=== PATIENT | male | born 1970 | race Hispanic/Latino ===

== ENCOUNTER 2019-10-12 17:19 | Emergency (ER) | payer BC, SELFPAY ==
--- NOTE | 2019-10-12 17:30 | DI.RAD.S_ITS ---
PROCEDURE: XR SHOULDER RT MIN 2V INDICATIONS: pain decreased rom TECHNIQUE: 3 views of the shoulder were acquired. COMPARISON: None. FINDINGS: Bones: Mild to moderate right acromioclavicular joint osteoarthritic changes are seen. No fractures or dislocations. No suspicious bony lesions. Visualized ribs appear intact. Soft tissues: No suspicious soft tissue calcifications. IMPRESSION: Right acromioclavicular joint osteoarthritis. No shoulder fracture or dislocation. Dictated by: Aramis Monae M.D. on 10/12/2019 at 17:54 Approved by: Aramis Monae M.D. on 10/12/2019 at 17:54
--- NOTE | 2019-10-12 17:34 | ED.UPPEXIN ---
HPI - Extremity Injury (Upper) <RENATA CatesBC - Last Filed: 10/12/19 18:25> General Chief Complaint: Extremity Problem,Nontraumatic Stated Complaint: rt shoulder pain Time Seen by Provider: 10/12/19 17:23 Source: patient Mode of arrival: Ambulatory Limitations: no limitations History of Present Illness HPI narrative: The patient is a 49-year-old male who denies pertinent medical history presents with his for chief complaint of right shoulder pain. He states that he woke up with it this morning, and has been worsening with decreased range of motion throughout the day. He denies any falls or trauma. He states he took Tylenol with codeine as well as Tylenol at home, with no improvement. He is concerned about his rotator cuff. He states that his range of motion is significantly decreased. He states he has never had any issues like this before. Related Data Home Medications Medication Instructions Recorded Confirmed HYDROCODONE/ACETAMINOPHEN (Vicodin 1 tab PO PRN #0 07/11/11 5-500 Tablet) KETOROLAC TROMETHAMINE (#TORADOL) 10 mg PO PRN #0 07/11/11 Previous Rx's Medication Instructions Recorded cyclobenzaprine 10 mg PO TID PRN #20 tab 10/12/19 ketorolac 10 mg PO TID PRN #15 tab 10/12/19 Allergies Allergy/AdvReac Type Severity Reaction Status Date / Time acetaminophen [From Vicodin] AdvReac Nausea Verified 10/12/19 18:04 hydrocodone [From Vicodin] AdvReac Nausea Verified 10/12/19 18:04 Review of Systems <HERB Cates - Last Filed: 10/12/19 18:25> Review of Systems Narrative: GENERAL: Denies chills, fatigue, malaise, fever, sweats. HEENT: Denies sinus pain, ear pain, sore throat, difficulty swallowing, dizziness. RESPIRATORY: Denies dyspnea, cough, wheezing, hemoptysis, sputum. CARDIOVASCULAR: Denies chest pain, palpitations, orthopnea, edema, GASTROINTESTINAL: Denies nausea, vomiting, abdominal pain, diarrhea, constipation, melena. : Denies dysuria, frequency, incontinence, hematuria, urinary retention. MUSCULOSKELETAL: See HPI SKIN: Denies rash, skin lesions, or other NEUROLOGIC: Denies weakness, headache, numbness, change in speech, confusion, seizures, incoordination. PSYCHIATRIC: No concerning psychosocial issues. 12 point review of systems is negative except for those stated above Patient History <HERB Cates - Last Filed: 10/12/19 18:25> Social History Smoking Status: Current every day smoker Exam <HERB Cates - Last Filed: 10/12/19 18:25> Narrative Exam Narrative: GENERAL: This is a well-nourished, well-developed patient, in no acute distress HEAD: Atraumatic. Normocephalic. No temporal or scalp tenderness. EYES: Pupils equal round and reactive. Extraocular motions intact. No scleral icterus. No injection or drainage. ENT: Nose without bleeding, purulent drainage or septal hematoma. Throat without erythema, tonsillar hypertrophy or exudate. Uvula midline. Airway patent. NECK: Trachea midline. No JVD or lymphadenopathy. Supple, nontender, no meningeal signs. CARDIOVASCULAR: Regular rate and rhythm RESPIRATORY: No cough. No increased respiratory effort. No accessory muscle use. EXTREMITIES: General pain to palpation right shoulder. Cap refill less than 2 seconds all fingers right hand. Positive right pulse. Decreased range of motion all levine. Able to flex and extend to 90?. Negative empty can test. BACK: Nontender without deformity or crepitance. No flank tenderness. NEURO: AOx3. SKIN: No rash or erythema on visible skin. No rash erythema laceration abrasion noted right shoulder. Initial Vital Signs Initial Vital Signs: Vital Signs Pulse Rate 97 H 10/12/19 17:43 Respiratory Rate 20 10/12/19 17:43 Blood Pressure 125/81 10/12/19 17:43 Pulse Oximetry 100 10/12/19 17:43 <Porfirio Blackmon DO - Last Filed: 10/14/19 11:38> Initial Vital Signs Initial Vital Signs: Vital Signs Pulse Rate 97 H 10/12/19 17:43 Respiratory Rate 20 10/12/19 17:43 Blood Pressure 125/81 10/12/19 17:43 Pulse Oximetry 100 10/12/19 17:43 Course <HERB Cates - Last Filed: 10/12/19 18:25> Orders Ordered: Discontinued Medications Cyclobenzaprine HCl (Flexeril) 10 mg PO NOW ONE Stop: 10/12/19 17:31 Last Admin: 10/12/19 17:42 Dose: 10 mg Documented by: RAHUL Ketorolac Tromethamine (Toradol) 60 mg IM NOW ONE Stop: 10/12/19 17:31 Last Admin: 10/12/19 17:42 Dose: 60 mg Documented by: RAHUL Vital Signs Vital signs: Vital Signs - 8 hr 10/12/19 17:43 Pulse Rate 97 H Respiratory Rate 20 Blood Pressure [Left Arm] 125/81 Pulse Oximetry 100 <Porfirio Blackmon DO - Last Filed: 10/14/19 11:38> Orders Ordered: Discontinued Medications Cyclobenzaprine HCl (Flexeril) 10 mg PO NOW ONE Stop: 10/12/19 17:31 Last Admin: 10/12/19 17:42 Dose: 10 mg Documented by: RAHUL Ketorolac Tromethamine (Toradol) 60 mg IM NOW ONE Stop: 10/12/19 17:31 Last Admin: 10/12/19 17:42 Dose: 60 mg Documented by: RAHUL Vital Signs Vital signs: Vital Signs - 8 hr 10/12/19 17:43 Pulse Rate 97 H Respiratory Rate 20 Blood Pressure [Left Arm] 125/81 Pulse Oximetry 100 MDM - Extremity Injury (Upper) <HERB Cates - Last Filed: 10/12/19 18:25> Imaging Data Extremity x-ray #1: Radiologist's Impression: [place] [address] XRay Report Signed Patient: Mickey LuongMR#: [id number] : 1970Acct:[id number] Age/Sex: 49 / MDate of Service: 10/12/19 Loc: ED Accession Number: [id number] Procedure: XR shoulder RT min 2V Ordering Provider: Calli Deal PROCEDURE: XR SHOULDER RT MIN 2V INDICATIONS: pain decreased rom TECHNIQUE: 3 views of the shoulder were acquired. COMPARISON: None. FINDINGS: Bones: Mild to moderate right acromioclavicular joint osteoarthritic changes are seen. No fractures or dislocations. No suspicious bony lesions. Visualized ribs appear intact. Soft tissues: No suspicious soft tissue calcifications. IMPRESSION: Right acromioclavicular joint osteoarthritis. No shoulder fracture or dislocation. Dictated by: Aramis Monae M.D. on 10/12/2019 at 17:54 Approved by: Aramis Monae M.D. on 10/12/2019 at 17:54 [facility] Narrative Medical decision making narrative: The patient is a 49-year-old male who presents with a chief complaint of right shoulder pain. No known trauma. His x-ray has no acute findings he feels much improved after the above-stated therapies. Neurovascularly intact throughout his stay in the emergency department. I discussed at length the importance of following up with primary care provider, coming back to the emergency department for any acute concerns. Discussed not combining Toradol with any other NSAIDs. Discussed not combining cyclobenzaprine with any sedating agents. Patient has no questions or concerns upon discharge and states understanding of return precautions as well as follow-up care. Discharge Plan Departure Patient Disposition: Home Clinical Impression: Acute shoulder pain Qualifiers: Laterality: right Qualified Code(s): M25.511 - Pain in right shoulder Discharge Date/Time: 10/12/19 18:31 Instructions: How To Perform RICE (Rest, Ice, Compress, Elevate), DI for Shoulder Pain Activity Restrictions/Additional Instructions: As I discussed, your x-ray shows no acute fracture. This does not rule out a soft tissue injury such as a ligament or tendon injury. It is important that you follow up with primary care provider, especially if worsening or no improvement. There can be fractures that did not show up on initial x-ray. I have given you a prescription of Toradol. This is an NSAID. Do not combine it with other NSAIDs such as Aleve or ibuprofen. I suggest taking it with some food, as it can irritate your stomach. I also given you prescription of cyclobenzaprine. This can be sedating. Do not take it with anything else sedating. Please follow-up with primary care provider in the next few days Please come back to the emergency department for any acute concerns. Prescriptions: New ketorolac 10 mg tablet 10 mg PO TID PRN (Reason: pain) Qty: 15 RF: 0 cyclobenzaprine 10 mg tablet 10 mg PO TID PRN (Reason: muscle spasm) Qty: 20 RF: 0 No Action HYDROCODONE/ACETAMINOPHEN (Vicodin 5-500 Tablet) 1 tab PO PRN Qty: 0 RF: 0 KETOROLAC TROMETHAMINE (#TORADOL) 10 mg PO PRN Qty: 0 RF: 0 Referrals: [facility] [Non-Staff] - <Porfirio Blackmon DO - Last Filed: 10/14/19 11:38> Sign Out Provider Sign Out Attestation: I was immediately available in the department for consultation. This documentation has been reviewed and I agree with assessment and plan. Supervised by Porfirio Blackmon DO
[2019-10-12] MEDS: KETOROLAC 60 MG/2 ML VIAL IM (17:42)
[2019-10-12] MEDS: CYCLOBENZAPRINE 10 MG TABLET PO (17:42)
[2019-10-12 17:43] VITALS: BP 125/81; PULSE 97; RESP 20; O2SAT 100
[2019-10-12 18:30] VITALS: BP 119/83; PULSE 80; RESP 16; O2SAT 98
== END 2019-10-12 18:31 | disposition home or self-care (01) ==
PROVIDERS: Emergency Provider Nurse Practitioner Family
DX: M25.511 Pain in right shoulder (principal)
CPT/HCPCS: 73030; 96372; 99283; 99284; J1885

== ENCOUNTER 2021-09-15 13:01 | Emergency (ER) | payer BC, SELFPAY ==
[2021-09-15 13:05] VITALS: BP 130/91; PULSE 99; RESP 18; O2SAT 100; BMI 26.6
--- NOTE | 2021-09-15 13:08 | DI.RAD.S_ITS ---
PROCEDURE: XR KNEE RT 3V INDICATIONS: pain, unknown, no injury TECHNIQUE: 3 views of the knee were acquired. COMPARISON: None. FINDINGS: Bones: No fractures or dislocations. No suspicious bony lesions. Soft tissues: There is a aipt-cd-gvgqcheb joint effusion. No suspicious soft tissue calcifications. IMPRESSION: Pxhe-xl-msyruhhn joint effusion, without a focal bony abnormality seen by plain film. If it would be helpful for clinical management decision making, please consider a dedicated, scheduled knee MRI for further evaluation (assuming that there is no contraindication). Dictated by: Hema Liz M.D. on 09/15/2021 at 12:24 Approved by: Hema Liz M.D. on 09/15/2021 at 12:25
--- NOTE | 2021-09-15 13:21 | ED.EXTPRO ---
HPI - Extremity Problem <BORA Mccoy - Last Filed: 09/15/21 19:32> General Chief complaint: Extremity Problem,Nontraumatic Stated complaint: right knee pain Time Seen by Provider: 09/15/21 13:15 Source: patient Mode of arrival: Ambulatory History of Present Illness HPI Narrative: 51-year-old male presents to the emergency department with acute onset of right knee pain without trauma which started yesterday when he was getting out of his truck. 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 He denies any known trauma, denies any history of right knee pain, states that his legs are sore and stiff when he gets out of his truck and he has to stretch them. He endorses right lateral 5 pain associated with his right knee pain and the worst of his pain on the right lateral aspect of his right knee. He denies any internal knee pain, denies any difficulty ambulating on his knee, denies any sensation changes distal to his pain, denies any history of diabetes, denies any hip or ankle pain. Related Data Home Medications Medication Instructions Recorded Confirmed HYDROCODONE/ACETAMINOPHEN (Vicodin 1 tab PO PRN #0 07/11/11 5-500 Tablet) KETOROLAC TROMETHAMINE (#TORADOL) 10 mg PO PRN #0 07/11/11 Previous Rx's Medication Instructions Recorded cyclobenzaprine 10 mg tablet 10 mg PO TID PRN #20 tab 10/12/19 ketorolac 10 mg tablet 10 mg PO TID PRN #15 tab 10/12/19 Allergies Allergy/AdvReac Type Severity Reaction Status Date / Time No Known Drug Allergies Allergy Verified 09/15/21 13:04 Review of Systems <BORA Mccoy - Last Filed: 09/15/21 19:32> Review of Systems Narrative: General: denies fever, chills, malaise, sweats, fatigue Head/Neck: denies headache, neck pain, dizziness Eyes: denies visual changes, eye pain Cardio: denies chest pain, palpitations, edema Respiratory: denies dyspnea, cough, orthopnea GI: denies abdominal pain, nausea, vomiting, or diarrhea : denies dysuria, hematuria, urinary retention, frequency or incontinence MSK: Endorses right knee pain on the lateral aspect without muscle weakness, associated with right lateral distal thigh pain Skin: denies rash, itching, skin lesions or other Neuro: denies numbness, tingling Patient History <BORA Mccoy - Last Filed: 09/15/21 19:32> Social History Smoking Status: Current every day smoker Smoking Status: Current every day smoker Substance Use Type: does not use Exam <BORA Mccoy - Last Filed: 09/15/21 19:32> Narrative Exam Narrative: Independently reviewed vitals signs and nursing notes. General: Cooperative, comfortable, in no acute distress, well developed and well groomed Head/Neck: Normal visual inspection and supple, atraumatic, no JVD or lymphadenopathy. Normal facial exam Eyes: Pupils equal round and reactive, EOMI, conjunctiva normal, no scleral icterus or injections Nose: External nose normal, nares patent, no rhinorrhea Cardio: Regular rate and rhythm, no peripheral edema, warm extremities Respiratory: Normal respiratory effort, able to speak in complete sentences without audible wheezing, stridor, or rales. No retractions. MSK: Moves all extremities, neurovascularly intact, right iliotibial band tenderness and tightness to palpation, worse at the lateral right knee attachment point with associated edema, Miriam's test negative, Varus/valgus test are negative for increased laxity, no skin changes or ecchymosis, no weakness, Skin: Normal capillary refill, no rash Neuro: Normal speech and cognition, normal gait, A&O x3, tone normal, moves all extremities Psych: Mental status is grossly normal, speech is clear, congruent mood, normal affect Initial Vital Signs Initial Vital Signs: Vital Signs Pulse Rate 99 H 09/15/21 13:05 Respiratory Rate 18 09/15/21 13:05 Blood Pressure 130/91 H 09/15/21 13:05 Pulse Oximetry 100 09/15/21 13:05 <Calli Rollins DO - Last Filed: 09/21/21 08:12> Initial Vital Signs Initial Vital Signs: Vital Signs Pulse Rate 99 H 09/15/21 13:05 Respiratory Rate 18 09/15/21 13:05 Blood Pressure 130/91 H 09/15/21 13:05 Pulse Oximetry 100 09/15/21 13:05 Course <BORA Mccoy - Last Filed: 09/15/21 19:32> Orders Ordered: Discontinued Medications Acetaminophen (Acetaminophen 325 Mg Tablet) 975 mg PO NOW ONE Stop: 09/15/21 13:42 Last Admin: 09/15/21 13:49 Dose: 975 mg Documented by: ADINA Ketorolac Tromethamine (Ketorolac 30 Mg/Ml Vial) 15 mg IM NOW ONE Stop: 09/15/21 13:42 Last Admin: 09/15/21 13:48 Dose: 15 mg Documented by: ADINA Vital Signs Vital signs: Vital Signs - 8 hr 09/15/21 13:05 09/15/21 13:53 Pulse Rate 99 H 70 Respiratory Rate 18 18 Blood Pressure 130/91 H 130/67 Pulse Oximetry 100 98 <Calli Rollins DO - Last Filed: 09/21/21 08:12> Orders Ordered: Discontinued Medications Acetaminophen (Acetaminophen 325 Mg Tablet) 975 mg PO NOW ONE Stop: 09/15/21 13:42 Last Admin: 09/15/21 13:49 Dose: 975 mg Documented by: ADINA Ketorolac Tromethamine (Ketorolac 30 Mg/Ml Vial) 15 mg IM NOW ONE Stop: 09/15/21 13:42 Last Admin: 09/15/21 13:48 Dose: 15 mg Documented by: ADINA Vital Signs Vital signs: Vital Signs - 8 hr 09/15/21 13:05 09/15/21 13:53 Pulse Rate 99 H 70 Respiratory Rate 18 18 Blood Pressure 130/91 H 130/67 Pulse Oximetry 100 98 MDM - Extremity (Nontraumatic) <BORA Mccoy - Last Filed: 09/15/21 19:32> Imaging Data Extremity x-ray #1: Radiologist's Impression: PROCEDURE:? XR KNEE RT 3V ? INDICATIONS:? pain, unknown, no injury ? TECHNIQUE:? 3 views of the knee were acquired.? ? COMPARISON:? None. ? FINDINGS:? ? Bones:? No fractures or dislocations.? No suspicious bony lesions.? ? Soft tissues:? There is a kuhs-zy-qyvfpxxi joint effusion.? No suspicious soft tissue calcifications.? ? ? IMPRESSION:? Mxnn-cu-drrokdcg joint effusion, without a focal bony abnormality seen by plain film. ? If it would be helpful for clinical management decision making, please consider a dedicated, scheduled knee MRI for further evaluation (assuming that there is no contraindication).? ? ? Dictated by: Hema Liz M.D. on 09/15/2021 at 12:24 ? ? Approved by: Hema Liz M.D. on 09/15/2021 at 12:25 ? MDM Narrative Medical decision making narrative: 51-year-old male presents to the emergency department with right lateral knee pain which started yesterday when he got out of his truck. There is no associated trauma. Patient is a entry level truck driver, sits for long periods of time, is active outside of his job he says. Patient has not had any right knee pain in the past. On exam patient has right lateral knee tenderness over the LCL/iliotibial band with associated iliotibial band tension. Patient has tenderness along his iliotibial band, it is lot more tense than the left side. He does have a moderate right knee effusion on x-ray but no acute fracture, weakness, no internal knee pain, all of his pain is on the lateral aspect of his right knee which radiates up the lateral aspect of his thigh along his ID band. Patient was fitted in a knee immobilizer, he was given Toradol and Tylenol for pain. He was given a referral to Orthopedics and understands to follow-up with his primary care provider for referral to physical therapy and for outpatient advanced imaging. Patient was able to ambulate without difficulty in his knee immobilizer. Differential diagnosis includes ligamental injury, osteoarthritis, meniscal injury, ACL injury. Patient is appropriate and amenable to discharge home. Vital signs are stable on repeat examination is unremarkable. Patient has been informed of results. Patient has been given strict return to ER precautions for any new or worsening symptoms. Patient understands to follow up closely with outpatient providers as instructed. Patient understands plan and agrees to discharge home. All questions and concerns answered at this time. Discharge Plan Departure Patient Disposition: Home Clinical Impression: Iliotibial band syndrome affecting right lower leg, Effusion of knee joint right Instructions: Iliotibial Band Syndrome, DI for Knee Effusion Activity Restrictions/Additional Instructions: *You have been diagnosed with iliotibial band syndrome, and a right knee effusion. Please with this knee immobilizer as much as possible to help your right knee effusion improved. Morning and night stretch your IT bands and hold the stretches for at least 60 seconds. You can find these exercises/stretches on You Tube or online. Please follow-up with your primary care provider for a physical therapy referral as well as outpatient advanced imaging if necessary. I have included a referral to Orthopedics, please call and schedule an appointment for follow-up. You may use lidocaine patches or Voltaren gel for your right knee, take Tylenol and ibuprofen unless using Voltaren gel, then just Tylenol in addition to that. May ice it, keep it in the knee immobilizer, try to reduce stress. Hope it feels better soon. *What to do: *Please continue to take your regular medications as directed. [ ] New medication prescriptions sent to your pharmacy: [ ] [ ] New medication written as a paper prescription [ x] No new medications given *Please follow up with your primary care provider in 2-3 days, call for an appointment. Let them know you were seen in the Emergency Department and that we ask that you be seen in follow up. We will electronically transmit a record of today's note if your PCP is in our system *If you do not have a primary care provider please contact the [facility] Resource line at [phone]. They will ask some questions about your medical history and help get you set up with a doctor in the community. *Return to Emergency Department if you should have any new, worsening or concerning symptoms, such as [fever greater than 101F, chills, worsening pain, persistent vomiting or other bothersome symptoms] Prescriptions: No Action HYDROCODONE/ACETAMINOPHEN (Vicodin 5-500 Tablet) 1 tab PO PRN Qty: 0 0RF KETOROLAC TROMETHAMINE (#TORADOL) 10 mg PO PRN Qty: 0 0RF ketorolac 10 mg tablet 10 mg PO TID PRN (Reason: pain) Qty: 15 0RF cyclobenzaprine 10 mg tablet 10 mg PO TID PRN (Reason: muscle spasm) Qty: 20 0RF Referrals: [facility] [Provider Group] - 3-5 days Stand Alone Forms: Work Release Note <Calli Rollins DO - Last Filed: 09/21/21 08:12> Cosign ED Attending Cosignature Attestation: I was immediately available in the department for consultation. Documentation has been reviewed.
[2021-09-15] MEDS: KETOROLAC 30 MG/ML VIAL 15 MG IM (13:48)
[2021-09-15] MEDS: ACETAMINOPHEN 325 MG TABLET 975 MG PO (13:49)
[2021-09-15 13:53] VITALS: BP 130/67; PULSE 70; RESP 18; O2SAT 98
== END 2021-09-15 14:04 | disposition home or self-care (01) ==
PROVIDERS: Emergency Provider Nurse Practitioner Critical Care Medicine
DX: M76.31 Iliotibial band syndrome, right leg (principal); M25.461 Effusion, right knee
CPT/HCPCS: 73562; 96372; 99283; 99284; J1885

== ENCOUNTER 2021-12-15 06:57 | Emergency (ER) | payer OTHER, SELFPAY ==
[2021-12-15 07:00] VITALS: BP 146/85; PULSE 92; RESP 17; TEMP 36.5; O2SAT 99; BMI 25.8
--- NOTE | 2021-12-15 07:26 | DI.CT.S_ITS ---
PROCEDURE: CT ABDOMEN PELVIS W CON INDICATIONS: LLQ pain, hx colectomy for diverticulitis TECHNIQUE: After the administration of intravenous contrast, axial sections acquired from the lung bases to the pubic symphysis. Coronal and sagittal reformats were performed. For radiation dose reduction, the following was used: automated exposure control, adjustment of mA and/or kV according to patient size. COMPARISON: [facility], CT, ABDOMEN/PELVIS WITH CONTRAST, 07/11/2011, 17:18. FINDINGS: Lower thorax: The lung bases are clear. Heart size normal. No hiatal hernia. Liver: Normal in size and attenuation. No contour deformity present. Biliary system: No calcified cholelithiasis or pericholecystic inflammation. No intra or extrahepatic bile duct dilatation. Pancreas: Unremarkable without mass or inflammation evident. Spleen: Normal in size and density. Adrenals: Normal morphology and density. Reproductive system: Unremarkable as visualized. Urinary system: Normal renal size and attenuation. No renal calculi, hydronephrosis, or solid mass present. Urinary bladder unremarkable. Gastrointestinal system: Multiple diverticula arise from the sigmoid and descending colon. There is Christine colic inflammatory change noted in focally at the distal descending colon. No evidence of abscess, free air or free fluid. Appendix: No findings to suggest acute appendicitis. Peritoneal spaces: No mesenteric or retroperitoneal adenopathy. No free air. No free fluid. Vasculature: The IVC, aorta and iliac vasculature are unremarkable. Abdominal wall: Abdominal wall intact without evidence of ventral or inguinal hernias. Musculoskeletal: Normal bone mineralization. No acute fractures. IMPRESSION: 1. Acute uncomplicated diverticulitis in the distal descending colon. No evidence of obstruction, abscess or free air. Approved by: Bahman Ramirez M.D. on 12/15/2021 at 8:14
--- NOTE | 2021-12-15 07:27 | ED_ITS ---
HPI - Abdominal Pain General Chief Complaint: Abdominal Pain Stated Complaint: Thinks diverticulitis flare up Time Seen by Provider: 12/15/21 07:19 Source: patient Mode of arrival: Ambulatory History of Present Illness HPI narrative: Patient is a healthy 51-year-old male with history of diverticulitis with colectomy number of years ago presenting today with left lower quadrant pain. He says this feels like previous diverticulitis attacks. The 1st attack ever had was quite severe requiring colectomy that was about 10 years ago. Since the surgery only had 1 other attack tilted. He actually started a little bit yesterday and he wants to get checked out today. He denies fevers chills. No nausea or vomiting. No change in bowel or bladder habits. He is hoping to get ahead of it Related Data Home Medications Medication Instructions Recorded Confirmed HYDROCODONE/ACETAMINOPHEN (Vicodin 1 tab PO PRN #0 07/11/11 5-500 Tablet) KETOROLAC TROMETHAMINE (#TORADOL) 10 mg PO PRN #0 07/11/11 Previous Rx's Medication Instructions Recorded cyclobenzaprine 10 mg tablet 10 mg PO TID PRN #20 tab 10/12/19 ketorolac 10 mg tablet 10 mg PO TID PRN #15 tab 10/12/19 ciprofloxacin HCl 500 mg tablet 500 mg PO BID #20 tab 12/15/21 (Cipro) metronidazole 500 mg tablet 500 mg PO Q8H 10 Days #30 tab 12/15/21 Allergies Allergy/AdvReac Type Severity Reaction Status Date / Time No Known Drug Allergies Allergy Verified 09/15/21 13:04 Review of Systems Review of Systems Narrative: GENERAL: Denies chills, fatigue, malaise, fever, sweats, travel HEENT: Denies sinus pain, ear pain, sore throat, difficulty swallowing, neck pain RESPIRATORY: Denies dyspnea, cough, wheezing, hemoptysis, sputum. CARDIOVASCULAR: Denies chest pain, palpitations, orthopnea, edema GASTROINTESTINAL: See HPI : Denies dysuria, frequency, incontinence, hematuria, urinary retention, flank pain. MUSCULOSKELETAL: Denies weakness, joint pain, or bony pain SKIN: No rash, no erythema, no pruritus NEUROLOGIC: Denies weakness, dizziness, headache, numbness, change in speech, confusion PSYCHIATRIC: No concerning psychosocial issues. 12 point review of systems is negative except for those stated above and HPI Patient History Medical History Diverticulitis Social History Smoking Status: Current every day smoker Smoking Status: Current every day smoker Substance Use Type: does not use Exam Initial Vital Signs Initial Vital Signs: Vital Signs Temperature 97.7 F 12/15/21 07:00 Pulse Rate 92 H 12/15/21 07:00 Respiratory Rate 17 12/15/21 07:00 Blood Pressure 146/85 H 12/15/21 07:00 Pulse Oximetry 99 12/15/21 07:00 GENERAL: Well-appearing 51-year-old and in no acute distress. HEENT: Head atraumatic,EOMI, pupils reactive, face symmetric, moist mucous membranes CARDIOVASCULAR: Regular rate and rhythm without murmurs, rubs or gallops. RESPIRATORY: Breath sounds equal bilaterally, no wheezes rales or rhonchi. ABDOMEN: Soft, tender left lower quadrant pain no guarding no rebound : No CVA tenderness EXTREMITIES: Normal range of motion, no clubbing or edema. Neurovascularly intact NEUROLOGICAL: Alert and oriented x4.Normal gait and speech. SKIN: Warm, dry, no laceration, no petechiae, no rashes or lesions. Course Orders Ordered: ED Orders 12/15/21 07:26 CT abdomen pelvis w con Stat 12/15/21 07:49 Complete Blood Count AUTO DIFF Stat Comprehensive Metabolic Panel Stat Lipase Stat Urinalysis and Microscopic Stat Vital Signs Vital signs: Vital Signs - 8 hr 12/15/21 07:00 Temperature 97.7 F Pulse Rate 92 H Respiratory Rate 17 Blood Pressure 146/85 H Pulse Oximetry 99 MDM - Abdominal Pain Lab Data Result diagrams: 12/15/21 07:49 12/15/21 07:49 Labs: Lab Results 12/15/21 12/15/21 12/15/21 Range/Units 07:49 07:49 07:49 WBC 10.7 (4.5-11.0) X10^3/uL RBC 4.97 (4.5-5.9) X10^6/uL Hgb 15.2 (13.5-17.5) g/dL Hct 44.2 (41-53) % MCV 89.0 (80-100) fL MCH 30.5 (26-34) PG MCHC 34.3 (30-36) % RDW 13.4 (11.6-14.8) % Plt Count 291 (150-400) X10^3/uL Neut % (Auto) 75.7 H (50-75) % Lymph % (Auto) 15.5 L (25-40) % [place] % (Auto) 6.6 (3-14) % Eos % (Auto) 1.7 L (2-4) % Baso % (Auto) 0.5 (0-2) % Neut # (Auto) 8100 H (4840-2607) /uL Lymph # (Auto) 1700 (7943-1227) /uL [place] # (Auto) 700 (0-900) /uL Eos # (Auto) 200 (0-450) /uL Baso # (Auto) 100 (0-100) /uL Sodium 140 (137-145) mmol/L Potassium 4.3 (3.4-5.1) mmol/L Chloride 105 (98-107) mmol/L Carbon Dioxide 30 (22-32) mmol/L BUN 14 (9-20) mg/dL Creatinine 0.92 (0.66-1.25) mg/dL Estimated GFR > 60 (>60) mL/min BUN/Creatinine Ratio 15.2 (6-22) Glucose 98 (70-100) mg/dL Calcium 9.1 (8.4-10.2) mg/dL Total Bilirubin 0.7 (0.2-1.3) mg/dL AST 27 (17-59) IU/L ALT 20 (<50) IU/L Alkaline Phosphatase 66 (38-126) U/L Total Protein 7.1 (6.3-8.2) g/dL Albumin 4.2 (3.5-5.0) g/dL Globulin 2.9 (1.7-4.1) g/dL Albumin/Globulin Ratio 1.4 (1.0-2.8) Lipase 44 (23-300) U/L Urine Color Yellow Urine Appearance Clear Urine pH 6.5 (4.5-8.0) Ur Specific [place] 1.020 (1.000-1.035) Urine Protein Trace H (Negative) Urine Glucose (UA) Negative (Negative) g/dL Urine Ketones Negative (NEGATIVE) Urine Occult Blood 2+ H (Negative) Urine Nitrate Negative (Negative) Urine Bilirubin Negative (NEGATIVE) Urine Urobilinogen 0.2 (0.2) E.U./dL Ur Leukocyte Esterase Negative (NEGATIVE) Urine RBC 1-5/hpf (0-5/HPF) Urine WBC 0-1/hpf (0-5/HPF) Ur Squamous Epith Cells 0-1 /hpf (0-5/HPF) Urine Bacteria None seen (None) Urine Mucus 2+ H (Negative) Ur Culture Indicated? Cult not indicated Imaging Data CT scan - abdomen/pelvis: Radiologist's Impression: [facility] [id number] CT Scan Report Signed Patient: Mickey Luong MR#: [id number] : 1970 Acct:[id number] Age/Sex: 51 / M Date of Service: 12/15/21 Loc: Accession Number: [id number] ?? Procedure: CT abdomen pelvis w con Ordering Provider: Lizy Conte D.O. PROCEDURE:? CT ABDOMEN PELVIS W CON ? INDICATIONS:? LLQ pain, hx colectomy for diverticulitis ? TECHNIQUE:? After the administration of intravenous contrast, axial sections acquired from the lung bases to the pubic symphysis.? Coronal and sagittal reformats were performed.? For radiation dose reduction, the following was used:? automated exposure control, adjustment of mA and/or kV according to patient size.? ? COMPARISON:? [facility], CT, ABDOMEN/PELVIS WITH CONTRAST, 07/11/2011, 17:18. ? FINDINGS: ? Lower thorax: The lung bases are clear.? Heart size normal.? No hiatal hernia. ? Liver:? Normal in size and attenuation. No contour deformity present. ? Biliary system:? No calcified cholelithiasis or pericholecystic inflammation.? No intra or extrahepatic bile duct dilatation. ? Pancreas:? Unremarkable without mass or inflammation evident. ? Spleen:? Normal in size and density. ? Adrenals:? Normal morphology and density. ? Reproductive system:? Unremarkable as visualized. ? Urinary system:? Normal renal size and attenuation. No renal calculi, hydronephrosis, or solid mass present.? Urinary bladder unremarkable. ? Gastrointestinal system:? Multiple diverticula arise from the sigmoid and de scending colon.? There is Christine colic inflammatory change noted in focally at the distal descending colon.? No evidence of abscess, free air or free fluid. ? Appendix:? No findings to suggest acute appendicitis. ? Peritoneal spaces:? No mesenteric or retroperitoneal adenopathy.? No free air.? No free fluid.? ? Vasculature:? The IVC, aorta and iliac vasculature are unremarkable. ? Abdominal wall:? Abdominal wall intact without evidence of ventral or inguinal hernias. ? Musculoskeletal:? Normal bone mineralization.? No acute fractures.? ? IMPRESSION: ? 1. Acute uncomplicated diverticulitis in the distal descending colon.? No evidence of obstruction, abscess or free air. ? ? ? Approved by: Bahman Ramirez M.D. on 12/15/2021 at 8:14? MDM Narrative Medical decision making narrative: The patient overall appears well. He is offered something for pain but this time it does not need or want to. He just wants to know what it is. Based on his history will do CT. CT confirms uncomplicated Diverticulitis. Blood work is overall reassuring. A prescriptions for Flagyl and Cipro are sent to pharmacy today. Discharge Plan Departure Patient Disposition: Home Clinical Impression: Diverticulitis Instructions: DI for Diverticulitis Activity Restrictions/Additional Instructions: *You have been diagnosed with uncomplicated diverticulitis *What to do: At this time continue to monitor. It should improve over the next couple of days with antibiotics. *Continue to take medications as directed --> [facility]. Cipro 500 mg twice a day for 10 days Flagyl 500 mg 3 times a day for 10 days *Follow up with your primary care provider in 2-3 days or call [phone] *Return to ER if you should have increasing pain fever bloody stools or any new, worsening or concerning symptoms Prescriptions: New metronidazole 500 mg tablet 500 mg PO Q8H 10 Days Qty: 30 0RF ciprofloxacin HCl [Cipro] 500 mg tablet 500 mg PO BID Qty: 20 0RF No Action HYDROCODONE/ACETAMINOPHEN (Vicodin 5-500 Tablet) 1 tab PO PRN Qty: 0 0RF KETOROLAC TROMETHAMINE (#TORADOL) 10 mg PO PRN Qty: 0 0RF ketorolac 10 mg tablet 10 mg PO TID PRN (Reason: pain) Qty: 15 0RF cyclobenzaprine 10 mg tablet 10 mg PO TID PRN (Reason: muscle spasm) Qty: 20 0RF
[2021-12-15 08:02] LABS: Add Manual Diff / Slide Review NO; Appearance Urine UA CLEAR; Basophils Absolute Auto 100 /uL (0-100); Basophils Percent Auto 0.5 % (0-2); Bilirubin Urine UA NEGATIVE (NEGATIVE); Color Urine UA YELLOW; Eosinophils Absolute Auto 200 /uL (0-450); Eosinophils Percent Auto 1.7 % (2-4); Glucose Urine UA NEGATIVE (Negative); Hematocrit 44.2 % (41-53); Hemoglobin 15.2 g/dL (13.5-17.5); Ketones Urine UA NEGATIVE (NEGATIVE); Leukocyte Esterase Urine UA NEGATIVE (NEGATIVE); Lymphocytes Absolute Auto 1700 /uL (1100-4500); Lymphocytes Percent Auto 15.5 % (25-40); Mean Corpuscular HGB Conc 34.3 % (30-36); Mean Corpuscular Hemoglobin 30.5 PG (26-34); Monocytes Absolute Auto 700 /uL (0-900); Monocytes Percent Auto 6.6 % (3-14); Neutrophils Absolute Auto 8100 /uL (1500-7000); Neutrophils Percent Auto 75.7 % (50-75); Nitrite Urine UA NEGATIVE (Negative); Occult Blood Urine UA 2+ (Negative); Platelet Count 291 X10^3/uL (150-400); Protein Urine UA TRACE (Negative); Red Blood Cell Count 4.97 X10^6/uL (4.5-5.9); Red Cell Distribution Width 13.4 % (11.6-14.8); Urobilinogen Urine UA 0.2 E.U./dL (0.2); White Blood Cell Count 10.7 X10^3/uL (4.5-11.0); pH Urine UA 6.5 (4.5-8.0)
[2021-12-15 08:10] LABS: Bacteria Urine None Seen; Culture Indicated Urine Cult Not Indicated; Mucus Urine 2+ (Negative); RBC Urine 1-5/HPF (0-5/HPF); Squamous Epithelial Cell Urine 0-1 /HPF (0-5/HPF); WBC Urine 0-1/HPF (0-5/HPF)
[2021-12-15 08:12] LABS: Alanine Aminotransferase 20 IU/L (<50); Albumin 4.2 g/dL (3.5-5.0); Albumin Globulin Ratio 1.4 (1.0-2.8); Alkaline Phosphatase 66 U/L (38-126); Aspartate Aminotransferase 27 IU/L (17-59); BUN Creatinine Ratio 15.2 (6-22); Bilirubin Total 0.7 mg/dL (0.2-1.3); Blood Urea Nitrogen 14 mg/dL (9-20); Calcium 9.1 mg/dL (8.4-10.2); Carbon Dioxide 30 mmol/L (22-32); Chloride 105 mmol/L (98-107); Estimated Glomerular Filt Rate > 60 mL/min (>60); Globulin 2.9 g/dL (1.7-4.1); Glucose 98 mg/dL (70-100); HEMOLYSIS < 15 (0-50); Lipase 44 U/L (23-300); Potassium 4.3 mmol/L (3.4-5.1); Sodium 140 mmol/L (137-145); Total Protein 7.1 g/dL (6.3-8.2)
[2021-12-15 09:50] VITALS: BP 125/75; PULSE 80; RESP 16; O2SAT 99
== END 2021-12-15 09:52 | disposition home or self-care (01) ==
PROVIDERS: Emergency Provider Emergency Medicine
DX: K57.92 Diverticulitis of intestine, part unspecified, without perforation or abscess without bleeding (principal)
CPT/HCPCS: 36415; 74177; 80053; 81001; 83690; 85025; 99284; Q9967

== ENCOUNTER 2022-09-11 21:19 | Emergency (ER) | payer OTHER, SELFPAY ==
[2022-09-11 21:31] VITALS: BP 145/83; PULSE 89; RESP 18; TEMP 36.4; O2SAT 99; BMI 25.0
[2022-09-11 21:59] LABS: Bacteria Urine None Seen; Culture Indicated Urine Cult Not Indicated; RBC Urine 0-1/HPF (0-5/HPF); Squamous Epithelial Cell Urine None Seen (0-5/HPF); WBC Urine None Seen (0-5/HPF)
[2022-09-11 22:38] LABS: Add Manual Diff / Slide Review NO; Basophils Absolute Auto 100 /uL (0-100); Basophils Percent Auto 0.5 % (0-2); Eosinophils Absolute Auto 300 /uL (0-450); Eosinophils Percent Auto 2.2 % (2-4); Hematocrit 43.5 % (41-53); Hemoglobin 14.9 g/dL (13.5-17.5); Lymphocytes Absolute Auto 3300 /uL (1100-4500); Mean Corpuscular HGB Conc 34.3 % (30-36); Mean Corpuscular Hemoglobin 30.8 PG (26-34); Mean Corpuscular Volume 89.9 fL (80-100); Monocytes Absolute Auto 1000 /uL (0-900); Monocytes Percent Auto 7.4 % (3-14); Neutrophils Absolute Auto 9000 /uL (1500-7000); Neutrophils Percent Auto 65.9 % (50-75); Platelet Count 290 X10^3/uL (150-400); Red Blood Cell Count 4.84 X10^6/uL (4.5-5.9); Red Cell Distribution Width 13.6 % (11.6-14.8); White Blood Cell Count 13.7 X10^3/uL (4.5-11.0)
[2022-09-11 22:43] LABS: Alanine Aminotransferase 23 IU/L (<50); Albumin 4.1 g/dL (3.5-5.0); Albumin Globulin Ratio 1.3 (1.0-2.8); Alkaline Phosphatase 86 U/L (38-126); Aspartate Aminotransferase 24 IU/L (17-59); BUN Creatinine Ratio 23.9 (6-22); Bilirubin Total 0.4 mg/dL (0.2-1.3); Blood Urea Nitrogen 21 mg/dL (9-20); Carbon Dioxide 28 mmol/L (22-32); Chloride 103 mmol/L (98-107); Estimated Glomerular Filt Rate > 60 mL/min (>60); Globulin 3.1 g/dL (1.7-4.1); Glucose 89 mg/dL (70-100); HEMOLYSIS < 15 (0-50); Lipase 75 U/L (23-300); Potassium 4.2 mmol/L (3.4-5.1); Sodium 138 mmol/L (137-145); Total Protein 7.2 g/dL (6.3-8.2)
--- NOTE | 2022-09-11 23:50 | ED.ABDPAIN ---
HPI - Abdominal Pain General Chief Complaint: Abdominal Pain Stated Complaint: abd. pain/diverticulitis Time Seen by Provider: 09/11/22 22:32 Source: patient Mode of arrival: Ambulatory Limitations: no limitations History of Present Illness HPI narrative: This is a 52-year-old male with history of diverticulitis, colon resection for diverticulitis and presents with concern for diverticulitis. Patient states no fevers. No nausea or vomiting. He states he started having suprapubic pain early this morning has been slowly increasing. Patient states he had pain in that area after having a bowel movement this morning that was mild. This evening he had another bowel movement increased in a little bit more. He states no dysuria, urgency or frequency. He has not had any back flank pain. He states he is had diverticulitis in the past sometimes it is in the left lower quadrant but he has had an episode before that was suprapubic that felt similar to this. Patient states he has been treated with Cipro and Flagyl in the past. He states no other surgeries besides as colon resection 11 years ago. Patient does smoke, no illicit. He denies any drug allergies. Related Data Home Medications Medication Instructions Recorded Confirmed HYDROCODONE/ACETAMINOPHEN (Vicodin 1 tab PO PRN ##0 07/11/11 5-500 Tablet) KETOROLAC TROMETHAMINE (#TORADOL) 10 mg PO PRN ##0 07/11/11 Previous Rx's Medication Instructions Recorded cyclobenzaprine 10 mg tablet 10 mg PO TID PRN muscle spasm #20 10/12/19 tabs ketorolac 10 mg tablet 10 mg PO TID PRN pain #15 tabs 10/12/19 ciprofloxacin HCl 500 mg tablet 500 mg PO BID #20 tabs 12/15/21 (Cipro) ciprofloxacin HCl 500 mg tablet 500 mg PO BID #20 tabs 12/15/21 (Cipro) ciprofloxacin HCl 500 mg tablet 500 mg PO BID #20 tabs 09/12/22 metronidazole 500 mg tablet 500 mg PO TID #30 tabs 09/12/22 Allergies Allergy/AdvReac Type Severity Reaction Status Date / Time No Known Drug Allergies Allergy Verified 09/15/21 13:04 Review of Systems Review of Systems ROS Unobtainable: All systems reviewed & are unremarkable except as noted in HPI and below Patient History Medical History Diverticulitis Social History Smoking Status: Current every day smoker Smoking Status: Current every day smoker Substance Use Type: does not use Exam Narrative Exam Narrative: GENERAL: Alert and oriented x three, male in mild distress. HEENT: Head normocephalic, atraumatic, EOMI, pupils reactive, face symmetric, moist mucous membranes NECK: Supple, full range of motion CARDIOVASCULAR: Regular rate and rhythm without murmurs, rubs or gallops. RESPIRATORY: Breath sounds equal bilaterally, no wheezes rales or rhonchi. ABDOMEN: Soft, mild suprapubic tenderness. Nondistended. Normoactive bowel sounds all 4 quadrants. No guarding or rebound, rigidity, no mass : No CVA tenderness EXTREMITIES: Normal range of motion, no clubbing or edema. Neurovascularly intact NEUROLOGICAL: Cranial nerves II through XII grossly intact. Moving all extremities SKIN: Warm, dry, no petechiae, no rashes or lesions. Initial Vital Signs Initial Vital Signs: Vital Signs Temperature 97.5 F L 09/11/22 21:31 Pulse Rate 89 09/11/22 21:31 Respiratory Rate 18 09/11/22 21:31 Blood Pressure 145/83 H 09/11/22 21:31 Pulse Oximetry 99 09/11/22 21:31 Oxygen Delivery Method 09/11/22 21:31 Course Orders Ordered: ED Orders 09/11/22 21:43 Urine Microscopic Stat 09/11/22 22:10 Complete Blood Count AUTO DIFF Stat Comprehensive Metabolic Panel Stat Lipase Stat Discontinued Medications Ciprofloxacin (Ciprofloxacin 250 Mg Tablet) 500 mg PO NOW ONE Stop: 09/12/22 00:01 Last Admin: 09/12/22 00:09 Dose: 500 mg Documented By: SAMARA Metronidazole (Metronidazole 500 Mg Tablet) 500 mg PO NOW ONE Stop: 09/12/22 00:02 Last Admin: 09/12/22 00:09 Dose: 500 mg Documented By: SAMARA Vital Signs Vital signs: Vital Signs - 8 hr 09/11/22 21:31 09/12/22 00:30 Temperature 97.5 F L Pulse Rate 89 80 Respiratory Rate 18 18 Blood Pressure 145/83 H 122/79 Pulse Oximetry 99 98 Oxygen Delivery Method Room Air Room Air MDM - Abdominal Pain Lab Data 09/11/22 22:10 09/11/22 22:10 Labs: Lab Results 09/11/22 09/11/22 09/11/22 Range/Units 21:43 22:10 22:10 WBC 13.7 H (4.5-11.0) X10^3/uL RBC 4.84 (4.5-5.9) X10^6/uL Hgb 14.9 (13.5-17.5) g/dL Hct 43.5 (41-53) % MCV 89.9 (80-100) fL MCH 30.8 (26-34) PG MCHC 34.3 (30-36) % RDW 13.6 (11.6-14.8) % Plt Count 290 (150-400) X10^3/uL Neut % (Auto) 65.9 (50-75) % Lymph % (Auto) 24.0 L (25-40) % [place] % (Auto) 7.4 (3-14) % Eos % (Auto) 2.2 (2-4) % Baso % (Auto) 0.5 (0-2) % Neut # (Auto) 9000 H (6759-5647) /uL Lymph # (Auto) 3300 (8668-0435) /uL [place] # (Auto) 1000 H (0-900) /uL Eos # (Auto) 300 (0-450) /uL Baso # (Auto) 100 (0-100) /uL Sodium 138 (137-145) mmol/L Potassium 4.2 (3.4-5.1) mmol/L Chloride 103 (98-107) mmol/L Carbon Dioxide 28 (22-32) mmol/L BUN 21 H (9-20) mg/dL Creatinine 0.88 (0.66-1.25) mg/dL Estimated GFR > 60 (>60) mL/min BUN/Creatinine Ratio 23.9 H (6-22) Glucose 89 (70-100) mg/dL Calcium 9.0 (8.4-10.2) mg/dL Total Bilirubin 0.4 (0.2-1.3) mg/dL AST 24 (17-59) IU/L ALT 23 (<50) IU/L Alkaline Phosphatase 86 (38-126) U/L Total Protein 7.2 (6.3-8.2) g/dL Albumin 4.1 (3.5-5.0) g/dL Globulin 3.1 (1.7-4.1) g/dL Albumin/Globulin Ratio 1.3 (1.0-2.8) Lipase 75 (23-300) U/L Urine RBC 0-1/hpf (0-5/HPF) Urine WBC None seen (0-5/HPF) Ur Squamous Epith Cells None seen (0-5/HPF) Urine Bacteria None seen (None) Ur Culture Indicated? Cult not indicated Point of care testing: Urine Dip Bedside Urine Glucose Negative Bedside Urine Bilirubin - Negative Bedside Urine Ketone - Negative Urine Specific [place] 1.025 Bedside Urine Occult Blood + Bedside Urine pH 6.0 Bedside Urine Protein - Negative Bedside Urine Urobilinogen - Negative Bedside Urine Nitrite - Negative Bedside Urine Leukocytes - Negative Esterase MDM Narrative Medical decision making narrative: This is a 52-year-old male with symptoms very consistent with his prior episodes of diverticulitis patient has a slight white count, otherwise normal CMP and urine. Patient and I discussed will hold on CT he has overall reassuring exam, vitals he does have a slight white count he states that is not uncommon for him. He states he is responded well to Cipro and Flagyl so will start him on this with return precautions. Discharge Plan Departure Patient Disposition: Home Clinical Impression: Diverticulitis Instructions: DI for Diverticulitis Activity Restrictions/Additional Instructions: Please follow-up if your symptoms are not improving over the next several days. My hope you feel much better. Take antibiotics until completely gone Prescription sent a custom Rx in [place] Please return for fevers worsening abdominal back or flank pain, vomiting, new black or bloody stools or other new or concerning changes. Prescriptions: New ciprofloxacin HCl 500 mg tablet 500 mg PO BID Qty: 20 0RF metronidazole 500 mg tablet 500 mg PO TID Qty: 30 0RF No Action HYDROCODONE/ACETAMINOPHEN (Vicodin 5-500 Tablet) 1 tab PO PRN Qty: 0 KETOROLAC TROMETHAMINE (#TORADOL) 10 mg PO PRN Qty: 0 ciprofloxacin HCl [Cipro] 500 mg tablet 500 mg PO BID Qty: 20 0RF ciprofloxacin HCl [Cipro] 500 mg tablet 500 mg PO BID Qty: 20 0RF ketorolac 10 mg tablet 10 mg PO TID PRN (Reason: pain) Qty: 15 0RF cyclobenzaprine 10 mg tablet 10 mg PO TID PRN (Reason: muscle spasm) Qty: 20 0RF Stand Alone Forms: Patient Portal/API
[2022-09-12] MEDS: CIPROFLOXACIN 250 MG TABLET 500 MG PO (00:09)
[2022-09-12] MEDS: metroNIDAZOLE 500 MG TABLET PO (00:09)
[2022-09-12 00:30] VITALS: BP 122/79; PULSE 80; RESP 18; O2SAT 98
== END 2022-09-12 00:31 | disposition home or self-care (01) ==
PROVIDERS: Emergency Provider Emergency Medicine
DX: K57.92 Diverticulitis of intestine, part unspecified, without perforation or abscess without bleeding (principal)
CPT/HCPCS: 36415; 80053; 81003; 81015; 83690; 85025; 99283

== ENCOUNTER 2023-05-14 19:43 | Emergency (ER) | payer OTHER, SELFPAY ==
[2023-05-14] VITALS (7 sets, daily range): BP systolic 104–131; BP diastolic 65–83; PULSE 83–98; RESP 16; TEMP 37.1; O2SAT 96–98; BMI 25.8
--- NOTE | 2023-05-14 19:54 | ED.GENADULT ---
HPI - General Adult General Chief complaint: Abdominal Pain Stated complaint: diverticulosis flare up Time Seen by Provider: 05/14/23 19:44 History of Present Illness HPI narrative: 53-year-old male with history of colon resection and frequent diverticulitis presents with left lower quadrant pain since yesterday and states it feels like prior episodes of diverticulitis. He denies nausea, vomiting or diarrhea his last episode was last August any typically responds well to Cipro and Flagyl. he has no significant change in appetite. He states his pain is worse when he moves and improves with rest. He denies any radiation of the pain. Related Data Home Medications Medication Instructions Recorded Confirmed HYDROCODONE/ACETAMINOPHEN (Vicodin 1 tab PO PRN ##0 07/11/11 5-500 Tablet) KETOROLAC TROMETHAMINE (#TORADOL) 10 mg PO PRN ##0 07/11/11 Previous Rx's Medication Instructions Recorded cyclobenzaprine 10 mg tablet 10 mg PO TID PRN muscle spasm #20 10/12/19 tabs ketorolac 10 mg tablet 10 mg PO TID PRN pain #15 tabs 10/12/19 ciprofloxacin HCl 500 mg tablet 500 mg PO BID #20 tabs 12/15/21 (Cipro) ciprofloxacin HCl 500 mg tablet 500 mg PO BID #20 tabs 12/15/21 (Cipro) ciprofloxacin HCl 500 mg tablet 500 mg PO BID #20 tabs 09/12/22 metronidazole 500 mg tablet 500 mg PO TID #30 tabs 09/12/22 ciprofloxacin HCl 500 mg tablet 500 mg PO Q12H #20 tabs 05/14/23 (Cipro) hydrocodone 5 mg-acetaminophen 325 1 tab PO Q4-6H PRN pain #10 tabs 05/14/23 mg tablet metronidazole 500 mg tablet 500 mg PO Q8H #30 tabs 05/14/23 ondansetron 4 mg disintegrating 4 mg PO TID-QID PRN nausea and 05/14/23 tablet vomiting #10 tabs Allergies Allergy/AdvReac Type Severity Reaction Status Date / Time No Known Drug Allergies Allergy Verified 09/15/21 13:04 Review of Systems Review of Systems Narrative: GENERAL: Denies chills, fatigue, malaise, fever, sweats. HEENT: Denies sinus pain, ear pain, sore throat, difficulty swallowing, dizziness. RESPIRATORY: Denies dyspnea, cough, wheezing, hemoptysis, sputum. CARDIOVASCULAR: Denies chest pain, palpitations, orthopnea, edema, GASTROINTESTINAL: See HPI : Denies dysuria, frequency, incontinence, hematuria, urinary retention. MUSCULOSKELETAL: denies weakness, joint pain, or bony pain SKIN: Denies rash, skin lesions, or other NEUROLOGIC: Denies weakness, headache, numbness, change in speech, confusion, seizures, incoordination. PSYCHIATRIC: No concerning psychosocial issues. 12 point review of systems is negative except for those stated above Patient History Medical History Diverticulitis Social History Smoking Status: Current every day smoker Smoking Status: Current every day smoker Substance Use Type: does not use Exam Narrative Exam Narrative: GENERAL: [ 53] year old patient appears stated age. Well-developed patient, in mild distress. HEAD: Atraumatic. Normocephalic. EYES: Pupils equal round and reactive. Extraocular motions intact. No scleral icterus. No injection or drainage. ENT: Nose without bleeding, purulent drainage. Throat without erythema, tonsillar hypertrophy or exudate. Airway patent. NECK: Trachea midline. Non tender CARDIOVASCULAR: Regular rate and rhythm without murmurs, gallops, or rubs. RESPIRATORY: Clear to auscultation. Breath sounds equal bilaterally. No wheezes, rales, or rhonchi. GASTROINTESTINAL: Abdomen soft, minimal left lower quadrant pain without peritonitis, bowel sounds present, no guarding, nondistended. EXTREMITIES: No edema or joint tenderness. BACK: Nontender without deformity or crepitance. No flank tenderness. NEURO: AOx3. SKIN: No rash or erythema of visible areas Initial Vital Signs Initial Vital Signs: Vital Signs Blood Pressure 131/83 05/14/23 19:50 Pulse Oximetry 97 05/14/23 19:50 Course Orders Ordered: ED Orders 05/14/23 20:05 Complete Blood Count AUTO DIFF Stat Comprehensive Metabolic Panel Stat Lactate (Lactic Acid) Stat Discontinued Medications Hydrocodone Bitart/Acetaminophen (Hydrocodone/Acet 5/325 Prepack) 1 bottle MISC SEEINSTR ONE Stop: 05/14/23 21:29 Last Admin: 05/14/23 21:46 Dose: 1 bottle Documented By: Levofloxacin (Levaquin) 500 mg in 100 mls @ 100 mls/hr IV NOW ONE Stop: 05/14/23 21:39 Last Infusion: 05/14/23 21:46 Dose: Infused Documented By: Admin: 05/14/23 20:47 Dose: 100 mls/hr Documented By: Sodium Chloride (Normal Saline 0.9%) 1,000 mls @ 1,000 mls/hr IV BOLUS ONE Stop: 05/14/23 21:39 Last Infusion: 05/14/23 21:46 Dose: Infused Documented By: Admin: 05/14/23 20:47 Dose: 1,000 mls/hr Documented By: Ondansetron HCl (Ondansetron 4 Mg Odt Prepack) 1 bottle MISC SEEINSTR ONE Stop: 05/14/23 21:29 Last Admin: 05/14/23 21:46 Dose: 1 bottle Documented By: Vital Signs Vital signs: Vital Signs - 8 hr 05/14/23 19:50 05/14/23 19:50 05/14/23 19:54 Temperature 98.8 F Pulse Rate 98 H Respiratory Rate 16 Blood Pressure 131/83 131/83 Pulse Oximetry 97 98 Oxygen Delivery Method Room Air 05/14/23 20:00 05/14/23 20:07 05/14/23 20:07 Temperature Pulse Rate 90 Respiratory Rate Blood Pressure 127/69 Pulse Oximetry 97 97 Oxygen Delivery Method 05/14/23 20:30 05/14/23 20:30 05/14/23 21:00 Temperature Pulse Rate 83 Respiratory Rate Blood Pressure 109/68 104/65 Pulse Oximetry 96 Oxygen Delivery Method Room Air 05/14/23 21:00 05/14/23 21:30 05/14/23 21:30 Temperature Pulse Rate 87 86 Respiratory Rate Blood Pressure 110/71 Pulse Oximetry 97 97 Oxygen Delivery Method Medical Decision Making Lab Data 05/14/23 20:05 05/14/23 20:05 Labs: Lab Results 05/14/23 05/14/23 Range/Units 14:53 20:05 WBC 12.8 H (4.5-11.0) X10^3/uL RBC 4.56 (4.5-5.9) X10^6/uL Hgb 14.2 (13.5-17.5) g/dL Hct 41.0 (41-53) % MCV 90.0 (80-100) fL MCH 31.2 (26-34) PG MCHC 34.7 (30-36) % RDW 13.8 (11.6-14.8) % Plt Count 309 (150-400) X10^3/uL Neut % (Auto) 65.8 (50-75) % Lymph % (Auto) 25.3 (25-40) % [place] % (Auto) 6.4 (3-14) % Eos % (Auto) 2.0 (2-4) % Baso % (Auto) 0.5 (0-2) % Neut # (Auto) 8400 H (6226-5713) /uL Lymph # (Auto) 3200 (8959-5360) /uL [place] # (Auto) 800 (0-900) /uL Eos # (Auto) 300 (0-450) /uL Baso # (Auto) 100 (0-100) /uL Sodium 137 (137-145) mmol/L Potassium 3.7 (3.4-5.1) mmol/L Chloride 102 (98-107) mmol/L Carbon Dioxide 26 (22-32) mmol/L BUN 17 (9-20) mg/dL Creatinine 1.02 (0.66-1.25) mg/dL Estimated GFR > 60 (>60) mL/min BUN/Creatinine Ratio 16.7 (6-22) Glucose 119 H (70-100) mg/dL Lactate 1.4 (0.7-2.1) mmol/L Calcium 9.3 (8.4-10.2) mg/dL Total Bilirubin 0.2 (0.2-1.3) mg/dL AST 26 (17-59) IU/L ALT 19 (<50) IU/L Alkaline Phosphatase 84 (38-126) U/L Total Protein 6.7 (6.3-8.2) g/dL Albumin 3.9 (3.5-5.0) g/dL Globulin 2.8 (1.7-4.1) g/dL Albumin/Globulin Ratio 1.4 (1.0-2.8) Urine Color Yellow Urine Appearance Clear Urine pH 7.0 (4.5-8.0) Ur Specific [place] 1.020 (1.000-1.035) Urine Protein Negative (Negative) Urine Glucose (UA) Negative (Negative) g/dL Urine Ketones Trace H (NEGATIVE) Urine Occult Blood Trace-intact (Negative) Urine Nitrate Negative (Negative) Urine Bilirubin Negative (NEGATIVE) Urine Urobilinogen 1.0 (0.2) E.U./dL Ur Leukocyte Esterase Negative (NEGATIVE) Urine RBC 1-5/hpf (0-5/HPF) Urine WBC 1-5/hpf (0-5/HPF) Ur Squamous Epith Cells 0-1 /hpf (0-5/HPF) Urine Bacteria Occasional (0-1) (None) Ur Culture Indicated? Cult not indicated Urine Dip Bedside Urine Glucose Negative Bedside Urine Bilirubin - Negative Bedside Urine Ketone +/- 5 Urine Specific [place] 1.015 Bedside Urine Occult Blood +/- Bedside Urine pH 6.5 Bedside Urine Protein - Negative Bedside Urine Urobilinogen - Negative Bedside Urine Nitrite - Negative Bedside Urine Leukocytes - Negative Esterase Point of care testing: Urine Dip Bedside Urine Glucose Negative Bedside Urine Bilirubin - Negative Bedside Urine Ketone +/- 5 Urine Specific [place] 1.015 Bedside Urine Occult Blood +/- Bedside Urine pH 6.5 Bedside Urine Protein - Negative Bedside Urine Urobilinogen - Negative Bedside Urine Nitrite - Negative Bedside Urine Leukocytes - Negative Esterase MDM Narrative Medical decision making narrative: [53] year old patient presents with left lower quadrant pain, history of diverticulitis Multiple etiologies for patient's symptoms considered including, but not limited to: diverticulitis versus bowel obstruction versus kidney stone versus other Prior Charts reviewed in our EMR Primary Historian: patient Labs reviewed and interpreted by myself: slight leukocytosis and left shift, otherwise labs unremarkable patient's history and physical exam are very reassuring, no signs of sepsis, pain minimal without significant abdominal findings. No signs of sepsis. Patient given fluids and antibiotics. We did discuss the utility of performing a CT scan but sure the opinion that given his minimal symptoms currently and high likelihood of a mild diverticulitis we will hold off for now and see how the next day or 2 goes. He understands that for worsening pain, fever, persistent vomiting or other concerning symptoms that he should return for repeat evaluation and likely advanced imaging Patient's symptoms improved over duration of stay with above-stated therapies. Findings and discharge diagnosis discussed with patient/family followed by verbalization of understanding Return precautions discussed with patient/family whom verbalize understanding of diagnosis and plan Discharge Plan Departure Patient Disposition: Home Clinical Impression: Diverticulitis Instructions: DI for Diverticulitis Activity Restrictions/Additional Instructions: *You have been diagnosed with [abdominal pain most likely due to diverticulitis] * As we discussed your history and physical exam as well as labs are very reassuring. *What to do: *Please continue to take your regular medications as directed. [x ] New medication prescriptions sent to your pharmacy: [ ] *Please follow up with your primary care provider in 2-3 days, call for an appointment. Let them know you were seen in the Emergency Department and that we ask that you be seen in follow up. We will electronically transmit a record of today's note if your PCP is in our system *Please consider a clear liquid diet for the next 24-48 hours and then slowly advance to regular as tolerated. Also, try to avoid alcohol, nicotine, caffeine, spicy, acidic or fatty foods as this may worsen your symptoms *If you do not have a primary care provider please contact the [facility] Resource line at [phone]. They will ask some questions about your medical history and help get you set up with a doctor in the community. *Return to Emergency Department if you should have any new, worsening or concerning symptoms, such as [fever greater than 101 F, shaking chills, worsening pain, persistent vomiting or other bothersome symptoms] You have been prescribed a short course of narcotic medications. These are potentially dangerous and addictive medications that should be used carefully. While on these medications you cannot drive or operate heavy machinery. Additionally, you cannot sign legal documents or perform any duties such as this. 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 Please understand that we cannot provide further refills of narcotics or controlled substances through the ED and your pain management will need to be through your Primary Care Provider Prescriptions: New hydrocodone-acetaminophen 5-325 mg tablet 1 tab PO Q4-6H PRN (Reason: pain) Qty: 10 0RF ondansetron 4 mg tablet,disintegrating 4 mg PO TID-QID PRN (Reason: nausea and vomiting) Qty: 10 0RF ciprofloxacin HCl [Cipro] 500 mg tablet 500 mg PO Q12H Qty: 20 0RF metronidazole 500 mg tablet 500 mg PO Q8H Qty: 30 0RF No Action HYDROCODONE/ACETAMINOPHEN (Vicodin 5-500 Tablet) 1 tab PO PRN Qty: 0 KETOROLAC TROMETHAMINE (#TORADOL) 10 mg PO PRN Qty: 0 ciprofloxacin HCl [Cipro] 500 mg tablet 500 mg PO BID Qty: 20 0RF ciprofloxacin HCl [Cipro] 500 mg tablet 500 mg PO BID Qty: 20 0RF ketorolac 10 mg tablet 10 mg PO TID PRN (Reason: pain) Qty: 15 0RF cyclobenzaprine 10 mg tablet 10 mg PO TID PRN (Reason: muscle spasm) Qty: 20 0RF ciprofloxacin HCl 500 mg tablet 500 mg PO BID Qty: 20 0RF metronidazole 500 mg tablet 500 mg PO TID Qty: 30 0RF Stand Alone Forms: Patient Portal/API
[2023-05-14 20:09] LABS: Appearance Urine UA CLEAR; Bilirubin Urine UA NEGATIVE (NEGATIVE); Color Urine UA YELLOW; Glucose Urine UA NEGATIVE (Negative); Ketones Urine UA TRACE (NEGATIVE); Leukocyte Esterase Urine UA NEGATIVE (NEGATIVE); Nitrite Urine UA NEGATIVE (Negative); Occult Blood Urine UA TRACE-INTACT (Negative); Protein Urine UA NEGATIVE (Negative)
[2023-05-14 20:14] LABS: Add Manual Diff / Slide Review NO; Basophils Absolute Auto 100 /uL (0-100); Basophils Percent Auto 0.5 % (0-2); Eosinophils Absolute Auto 300 /uL (0-450); Hemoglobin 14.2 g/dL (13.5-17.5); Lymphocytes Absolute Auto 3200 /uL (1100-4500); Lymphocytes Percent Auto 25.3 % (25-40); Mean Corpuscular HGB Conc 34.7 % (30-36); Mean Corpuscular Hemoglobin 31.2 PG (26-34); Monocytes Absolute Auto 800 /uL (0-900); Monocytes Percent Auto 6.4 % (3-14); Neutrophils Absolute Auto 8400 /uL (1500-7000); Neutrophils Percent Auto 65.8 % (50-75); Platelet Count 309 X10^3/uL (150-400); Red Blood Cell Count 4.56 X10^6/uL (4.5-5.9); Red Cell Distribution Width 13.8 % (11.6-14.8); White Blood Cell Count 12.8 X10^3/uL (4.5-11.0)
[2023-05-14 20:26] LABS: Alanine Aminotransferase 19 IU/L (<50); Albumin 3.9 g/dL (3.5-5.0); Albumin Globulin Ratio 1.4 (1.0-2.8); Alkaline Phosphatase 84 U/L (38-126); Aspartate Aminotransferase 26 IU/L (17-59); BUN Creatinine Ratio 16.7 (6-22); Bilirubin Total 0.2 mg/dL (0.2-1.3); Blood Urea Nitrogen 17 mg/dL (9-20); Calcium 9.3 mg/dL (8.4-10.2); Carbon Dioxide 26 mmol/L (22-32); Chloride 102 mmol/L (98-107); Estimated Glomerular Filt Rate > 60 mL/min (>60); Globulin 2.8 g/dL (1.7-4.1); Glucose 119 mg/dL (70-100); HEMOLYSIS < 15 (0-50); Potassium 3.7 mmol/L (3.4-5.1); Sodium 137 mmol/L (137-145); Total Protein 6.7 g/dL (6.3-8.2)
[2023-05-14 20:38] LABS: Bacteria Urine Occasional (0-1); Culture Indicated Urine Cult Not Indicated; RBC Urine 1-5/HPF (0-5/HPF); Squamous Epithelial Cell Urine 0-1 /HPF (0-5/HPF); WBC Urine 1-5/HPF (0-5/HPF)
[2023-05-14] MEDS: SODIUM CHLORIDE 0.9% 1,000 ML 1000 ML IV (20:47)
[2023-05-14] MEDS: levoFLOXacin 500 MG/100 ML PIGGYBACK 100 MG IV (20:47)
[2023-05-14 20:48] LABS: Lactate (Lactic Acid) 1.4 mmol/L (0.7-2.1)
[2023-05-14] MEDS: ONDANSETRON 4 MG ODT PREPACK 1 BOTTLE MISC (21:46)
[2023-05-14] MEDS: HYDROCODONE/ACET 5/325 PREPACK 1 BOTTLE MISC (21:46)
== END 2023-05-14 21:52 | disposition home or self-care (01) ==
PROVIDERS: Emergency Provider Emergency Medicine
DX: K57.92 Diverticulitis of intestine, part unspecified, without perforation or abscess without bleeding (principal); Z79.899 Other long term (current) drug therapy
CPT/HCPCS: 36415; 80053; 81001; 81003; 83605; 85025; 96365; 99284; J1956

== ENCOUNTER 2023-09-19 15:30 | Emergency (ER) | payer OTHER, SELFPAY ==
[2023-09-19] VITALS (11 sets, daily range): BP systolic 109–157; BP diastolic 75–82; PULSE 68–99; RESP 13–23; TEMP 36.5–36.6; O2SAT 96–99; BMI 25.8
--- NOTE | 2023-09-19 15:39 | DI.RAD.S_ITS ---
PROCEDURE: XR CHEST 1V INDICATIONS: chest pain TECHNIQUE: One view of the chest was acquired. COMPARISON: [facility], , CHEST 1 VIEW, 07/11/2011, 16:24. FINDINGS: Surgical changes and devices: None. Lungs and pleura: Lungs are clear. No pleural effusions or pneumothorax. Mediastinum: Mediastinal contours appear normal. Heart size is normal. Bones and chest wall: No suspicious bony lesions. Overlying soft tissues appear unremarkable. IMPRESSION: No acute cardiopulmonary abnormality is seen. Dictated by: Hema Liz M.D. on 09/19/2023 at 15:18 Approved by: Hema Liz M.D. on 09/19/2023 at 15:18
[2023-09-19 16:06] LABS: Add Manual Diff / Slide Review NO; Basophils Absolute Auto 100 /uL (0-100); Basophils Percent Auto 0.7 % (0-2); Eosinophils Absolute Auto 200 /uL (0-450); Eosinophils Percent Auto 2.9 % (2-4); Hematocrit 43.7 % (41-53); Lymphocytes Absolute Auto 1800 /uL (1100-4500); Lymphocytes Percent Auto 23.2 % (25-40); Mean Corpuscular HGB Conc 34.3 % (30-36); Mean Corpuscular Hemoglobin 30.9 PG (26-34); Mean Corpuscular Volume 90.2 fL (80-100); Monocytes Absolute Auto 800 /uL (0-900); Monocytes Percent Auto 10.6 % (3-14); Neutrophils Absolute Auto 4900 /uL (1500-7000); Neutrophils Percent Auto 62.6 % (50-75); Platelet Count 305 X10^3/uL (150-400); Red Blood Cell Count 4.84 X10^6/uL (4.5-5.9); Red Cell Distribution Width 13.9 % (11.6-14.8); White Blood Cell Count 7.9 X10^3/uL (4.5-11.0)
[2023-09-19 16:13] LABS: PTT Partial Thromboplastin Tim 35 SECONDS (25.1-36.5)
[2023-09-19 16:17] LABS: Alanine Aminotransferase 25 IU/L (<50); Albumin 4.1 g/dL (3.5-5.0); Albumin Globulin Ratio 1.3 (1.0-2.8); Alkaline Phosphatase 86 U/L (38-126); Aspartate Aminotransferase 30 IU/L (17-59); BUN Creatinine Ratio 17.2 (6-22); Bilirubin Total 0.6 mg/dL (0.2-1.3); Blood Urea Nitrogen 16 mg/dL (9-20); Calcium 9.5 mg/dL (8.4-10.2); Carbon Dioxide 30 mmol/L (22-32); Chloride 102 mmol/L (98-107); Creatine Kinase 88 U/L (55-170); Estimated Glomerular Filt Rate > 60 mL/min (>60); Globulin 3.2 g/dL (1.7-4.1); Glucose 96 mg/dL (70-100); HEMOLYSIS < 15 (0-50); Lipase 91 U/L (23-300); Potassium 4.1 mmol/L (3.4-5.1); Sodium 140 mmol/L (137-145); Total Protein 7.3 g/dL (6.3-8.2)
[2023-09-19 16:28] LABS: Troponin I < 0.012 ng/mL (0.01-0.034)
--- NOTE | 2023-09-19 17:15 | ED_ITS ---
HPI - Chest Pain General Chief Complaint: Chest Pain Stated Complaint: chest discomfort Time Seen by Provider: 09/19/23 15:52 Source: patient Mode of arrival: Ambulatory Limitations: no limitations Related Data Home Medications Medication Instructions Recorded Confirmed HYDROCODONE/ACETAMINOPHEN (Vicodin 1 tab PO PRN ##0 07/11/11 5-500 Tablet) KETOROLAC TROMETHAMINE (#TORADOL) 10 mg PO PRN ##0 07/11/11 Previous Rx's Medication Instructions Recorded cyclobenzaprine 10 mg tablet 10 mg PO TID PRN muscle spasm #20 10/12/19 tabs ketorolac 10 mg tablet 10 mg PO TID PRN pain #15 tabs 10/12/19 ciprofloxacin HCl 500 mg tablet 500 mg PO BID #20 tabs 12/15/21 (Cipro) ciprofloxacin HCl 500 mg tablet 500 mg PO BID #20 tabs 12/15/21 (Cipro) ciprofloxacin HCl 500 mg tablet 500 mg PO BID #20 tabs 09/12/22 metronidazole 500 mg tablet 500 mg PO TID #30 tabs 09/12/22 ciprofloxacin HCl 500 mg tablet 500 mg PO Q12H #20 tabs 05/14/23 (Cipro) hydrocodone 5 mg-acetaminophen 325 1 tab PO Q4-6H PRN pain #10 tabs 05/14/23 mg tablet metronidazole 500 mg tablet 500 mg PO Q8H #30 tabs 05/14/23 ondansetron 4 mg disintegrating 4 mg PO TID-QID PRN nausea and 05/14/23 tablet vomiting #10 tabs Allergies Allergy/AdvReac Type Severity Reaction Status Date / Time No Known Drug Allergies Allergy Verified 09/15/21 13:04 Patient History Medical History Diverticulitis Social History Smoking Status: Current every day smoker Smoking Status: Current every day smoker tobacco type: cigarettes Substance Use Type: does not use Exam Initial Vital Signs Initial Vital Signs: Vital Signs Temperature 97.9 F 09/19/23 15:34 Pulse Rate 99 H 09/19/23 15:34 Respiratory Rate 18 09/19/23 15:34 Blood Pressure 157/82 H 09/19/23 15:34 Pulse Oximetry 99 09/19/23 15:34 Oxygen Delivery Method Room Air 09/19/23 15:34 Course Orders Ordered: ED Orders 09/19/23 15:39 XR chest 1V Stat EKG-12 Lead Stat 09/19/23 15:56 Complete Blood Count AUTO DIFF Stat Comprehensive Metabolic Panel Stat Lipase Stat Magnesium Stat PTT Partial Thromboplastin [place] Stat Prothrombin Time INR Stat Troponin & CK Cardiac Panel Stat 09/19/23 18:55 Trop I [Troponin I] Stat Discontinued Medications Aspirin (Aspirin 81 Mg Chew Tab) 324 mg PO NOW ONE Stop: 09/19/23 15:40 Last Admin: 09/19/23 16:06 Dose: Not Given Documented By: KF Vital Signs Vital signs: Vital Signs - 8 hr 09/19/23 15:34 09/19/23 16:04 09/19/23 16:05 Temperature 97.9 F Pulse Rate 99 H 80 80 Respiratory Rate 18 23 18 Blood Pressure 157/82 H Pulse Oximetry 99 99 99 Oxygen Delivery Method Room Air 09/19/23 16:05 09/19/23 16:30 09/19/23 16:30 Temperature Pulse Rate 79 Respiratory Rate 22 Blood Pressure 120/77 115/81 Pulse Oximetry 97 Oxygen Delivery Method Room Air 09/19/23 17:00 09/19/23 17:00 09/19/23 17:30 Temperature Pulse Rate 79 77 Respiratory Rate 17 23 Blood Pressure 119/78 Pulse Oximetry 97 97 Oxygen Delivery Method 09/19/23 17:30 09/19/23 18:00 09/19/23 18:00 Temperature Pulse Rate 71 Respiratory Rate 16 Blood Pressure 109/82 127/78 Pulse Oximetry 96 Oxygen Delivery Method 09/19/23 18:30 09/19/23 18:30 09/19/23 19:00 Temperature Pulse Rate 68 74 Respiratory Rate 16 18 Blood Pressure 117/75 Pulse Oximetry 98 96 Oxygen Delivery Method 09/19/23 19:00 Temperature Pulse Rate Respiratory Rate Blood Pressure 119/81 Pulse Oximetry Oxygen Delivery Method MDM - Chest Pain Lab Data 09/19/23 15:56 09/19/23 15:56 Labs: Lab Results 09/19/23 Range/Units 15:56 WBC 7.9 (4.5-11.0) X10^3/uL RBC 4.84 (4.5-5.9) X10^6/uL Hgb 15.0 (13.5-17.5) g/dL Hct 43.7 (41-53) % MCV 90.2 (80-100) fL MCH 30.9 (26-34) PG MCHC 34.3 (30-36) % RDW 13.9 (11.6-14.8) % Plt Count 305 (150-400) X10^3/uL Neut % (Auto) 62.6 (50-75) % Lymph % (Auto) 23.2 L (25-40) % [place] % (Auto) 10.6 (3-14) % Eos % (Auto) 2.9 (2-4) % Baso % (Auto) 0.7 (0-2) % Neut # (Auto) 4900 (1845-2377) /uL Lymph # (Auto) 1800 (0871-8650) /uL [place] # (Auto) 800 (0-900) /uL Eos # (Auto) 200 (0-450) /uL Baso # (Auto) 100 (0-100) /uL PT 11.0 (9.4-12.5) SECONDS INR 1.0 (0.9-1.3) APTT 35 (25.1-36.5) SECONDS Sodium 140 (137-145) mmol/L Potassium 4.1 (3.4-5.1) mmol/L Chloride 102 (98-107) mmol/L Carbon Dioxide 30 (22-32) mmol/L BUN 16 (9-20) mg/dL Creatinine 0.93 (0.66-1.25) mg/dL Estimated GFR > 60 (>60) mL/min BUN/Creatinine Ratio 17.2 (6-22) Glucose 96 (70-100) mg/dL Calcium 9.5 (8.4-10.2) mg/dL Magnesium 2.0 (1.6-2.3) mg/dL Total Bilirubin 0.6 (0.2-1.3) mg/dL AST 30 (17-59) IU/L ALT 25 (<50) IU/L Alkaline Phosphatase 86 (38-126) U/L Total Creatine Kinase 88 (55-170) U/L Troponin I < 0.012 (0.01-0.034) ng/mL Total Protein 7.3 (6.3-8.2) g/dL Albumin 4.1 (3.5-5.0) g/dL Globulin 3.2 (1.7-4.1) g/dL Albumin/Globulin Ratio 1.3 (1.0-2.8) Lipase 91 (23-300) U/L Discharge Plan Departure Prescriptions: No Action HYDROCODONE/ACETAMINOPHEN (Vicodin 5-500 Tablet) 1 tab PO PRN Qty: 0 KETOROLAC TROMETHAMINE (#TORADOL) 10 mg PO PRN Qty: 0 ciprofloxacin HCl [Cipro] 500 mg tablet 500 mg PO BID Qty: 20 0RF ciprofloxacin HCl [Cipro] 500 mg tablet 500 mg PO BID Qty: 20 0RF ketorolac 10 mg tablet 10 mg PO TID PRN (Reason: pain) Qty: 15 0RF cyclobenzaprine 10 mg tablet 10 mg PO TID PRN (Reason: muscle spasm) Qty: 20 0RF ciprofloxacin HCl 500 mg tablet 500 mg PO BID Qty: 20 0RF metronidazole 500 mg tablet 500 mg PO TID Qty: 30 0RF hydrocodone-acetaminophen 5-325 mg tablet 1 tab PO Q4-6H PRN (Reason: pain) Qty: 10 0RF ondansetron 4 mg tablet,disintegrating 4 mg PO TID-QID PRN (Reason: nausea and vomiting) Qty: 10 0RF ciprofloxacin HCl [Cipro] 500 mg tablet 500 mg PO Q12H Qty: 20 0RF metronidazole 500 mg tablet 500 mg PO Q8H Qty: 30 0RF Referrals: Miscellaneous,Doctor, MD [Primary Care Provider] -
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
[2023-09-19 19:43] LABS: Troponin I < 0.012 ng/mL (0.01-0.034)
== END 2023-09-19 20:27 | disposition home or self-care (01) ==
PROVIDERS: Emergency Medicine; Emergency Provider Emergency Medicine
DX: R07.9 Chest pain, unspecified (principal)
CPT/HCPCS: 36415; 71045; 80053; 82550; 83690; 83735; 84484; 85025; 85610; 85730; 93005; 99284

== ENCOUNTER 2023-11-06 18:56 | Emergency (ER) | payer OTHER, SELFPAY ==
[2023-11-06 19:13] VITALS: BP 120/68; PULSE 89; RESP 16; TEMP 36.4; O2SAT 100; BMI 25.8
--- NOTE | 2023-11-06 19:21 | DI.RAD.S_ITS ---
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 COMPARISON: [facility], CR, HANDS BILATERAL, 12/03/2009, 16:04. FINDINGS: Bones: Mildly comminuted distal tuft fracture of the left middle finger distal phalanx. Overlying soft tissue swelling. Remainder of the visualized osseous structures appear intact. Soft tissues: Soft tissue swelling of the distal left 3rd and 4th fingers. No radiopaque soft tissue foreign bodies. IMPRESSION: Comminuted distal tuft fracture of the left middle finger distal phalanx. Overlying soft tissue swelling. No radiopaque soft tissue foreign body. Soft tissue swelling of the distal 4th finger without underlying fracture or dislocation. If there is persistent clinical concern for occult fracture given adequate mechanism of injury, consider repeat imaging in 10-14 days. Dictated by: Deep Ghosh M.D. on 11/06/2023 at 19:53 Approved by: Deep Ghosh M.D. on 11/06/2023 at 19:54
[2023-11-06] MEDS: OXYCODONE IR 5 MG TABLET PO (19:24)
--- NOTE | 2023-11-06 19:32 | ED.WOUNDLAC ---
HPI - Wound/Laceration General Chief Complaint: Wound/Laceration Stated Complaint: Finger Laceration Time Seen by Provider: 11/06/23 19:08 Source: patient Mode of arrival: Ambulatory History of Present Illness HPI narrative: 53-year-old male presents for evaluation of left middle and ring finger injuries. Patient was working with a lawnmower and while the blades were still moving he injured his hand. He was wearing leather gloves which caught the brunt of the impact, however he did notice he was bleeding. His daughter wrapped his fingers and a bandage and he presented to the ER for evaluation. Reports last tetanus shot 2 years ago. Related Data Home Medications Medication Instructions Recorded Confirmed HYDROCODONE/ACETAMINOPHEN (Vicodin 1 tab PO PRN ##0 07/11/11 5-500 Tablet) KETOROLAC TROMETHAMINE (#TORADOL) 10 mg PO PRN ##0 07/11/11 Previous Rx's Medication Instructions Recorded cyclobenzaprine 10 mg tablet 10 mg PO TID PRN muscle spasm #20 10/12/19 tabs ketorolac 10 mg tablet 10 mg PO TID PRN pain #15 tabs 10/12/19 ciprofloxacin HCl 500 mg tablet 500 mg PO BID #20 tabs 12/15/21 (Cipro) ciprofloxacin HCl 500 mg tablet 500 mg PO BID #20 tabs 12/15/21 (Cipro) ciprofloxacin HCl 500 mg tablet 500 mg PO BID #20 tabs 09/12/22 metronidazole 500 mg tablet 500 mg PO TID #30 tabs 09/12/22 ciprofloxacin HCl 500 mg tablet 500 mg PO Q12H #20 tabs 05/14/23 (Cipro) hydrocodone 5 mg-acetaminophen 325 1 tab PO Q4-6H PRN pain #10 tabs 05/14/23 mg tablet metronidazole 500 mg tablet 500 mg PO Q8H #30 tabs 05/14/23 ondansetron 4 mg disintegrating 4 mg PO TID-QID PRN nausea and 05/14/23 tablet vomiting #10 tabs amoxicillin 875 mg-potassium 1 tab PO Q12H #20 tabs 11/06/23 clavulanate 125 mg tablet hydrocodone 5 mg-acetaminophen 325 1 tab PO Q6H PRN pain #10 tabs 11/06/23 mg tablet Allergies Allergy/AdvReac Type Severity Reaction Status Date / Time No Known Drug Allergies Allergy Verified 09/15/21 13:04 Review of Systems Review of Systems Narrative: Negative except as noted above Patient History Medical History Diverticulitis Social History Smoking Status: Current every day smoker Smoking Status: Current every day smoker tobacco type: cigarettes Substance Use Type: does not use Exam Initial Vital Signs Initial Vital Signs: Vital Signs Temperature 97.6 F 11/06/23 19:13 Pulse Rate 89 11/06/23 19:13 Respiratory Rate 16 11/06/23 19:13 Blood Pressure 120/68 11/06/23 19:13 Pulse Oximetry 100 11/06/23 19:13 Oxygen Delivery Method Room Air 11/06/23 19:13 Const: Awake, alert, no acute distress, nontoxic appearing MSK: L middle finger injury with nailbed disruption Skin: Warm, Dry, 2cm oblique laceration across L middle nailbed Neuro: AO x3, CN II-XII grossly intact, moves all extremities Course Orders Ordered: Discontinued Medications Hydrocodone Bitart/Acetaminophen (Hydrocodone/Acet 5/325 Prepack) 1 bottle MISC DIRECTED ONE Stop: 11/06/23 20:32 Last Admin: 11/06/23 20:47 Dose: 1 bottle Documented By: HNG Oxycodone HCl (Oxycodone Ir 5 Mg Tablet) 5 mg PO NOW ONE Stop: 11/06/23 19:22 Last Admin: 11/06/23 19:24 Dose: 5 mg Documented By: ES Vital Signs Vital signs: Vital Signs - 8 hr 11/06/23 19:13 Temperature 97.6 F Pulse Rate 89 Respiratory Rate 16 Blood Pressure 120/68 Pulse Oximetry 100 Oxygen Delivery Method Room Air MDM - Wound/Laceration Differential Diagnosis Differential diagnosis: Likely laceration, abscess and abrasion Imaging Data Extremity x-ray #1: Radiologist's Impression: PROCEDURE: XR HAND LT MIN 3V 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 COMPARISON: [facility], CR, HANDS BILATERAL, 12/03/2009, 16:04. FINDINGS: Bones: Mildly comminuted distal tuft fracture of the left middle finger distal phalanx. Overlying soft tissue swelling. Remainder of the visualized osseous structures appear intact. Soft tissues: Soft tissue swelling of the distal left 3rd and 4th fingers. No radiopaque soft tissue foreign bodies. IMPRESSION: Comminuted distal tuft fracture of the left middle finger distal phalanx. Overlying soft tissue swelling. No radiopaque soft tissue foreign body. Soft tissue swelling of the distal 4th finger without underlying fracture or dislocation. If there is persistent clinical concern for occult fracture given adequate mechanism of injury, consider repeat imaging in 10-14 days. Dictated by: Deep Ghosh M.D. on 11/06/2023 at 19:53 Approved by: Deep Ghosh M.D. on 11/06/2023 at 19:54 [facility] Narrative Medical decision making narrative: Injury of fingers against lawnmower. Majority of injury is in left middle finger, he was an oblique laceration through part of the middle nail bed around to the lateral side of his finger. This does not appear to be amenable to suturing. There is no subungual hematoma. Patient has somewhat limited flexion of his middle finger due to swelling, he states that his pain is the most over the extensor surface of his finger towards the PIP, however there was no injury present at that joint. X-ray show tuft fracture of the left middle finger. With the overlying fracture and laceration this is likely an open tuft fracture. His wound was copiously irrigated and Betadine and normal saline, it was wrapped in clean dry dressings and he will be discharged on antibiotics. Patient counseled on the importance of following up with Orthopedics especially if he does not notice an improvement in the flexion of his middle finger. He was placed in a fernie tape splint and pain medication sent to pharmacy of choice. Discharge Plan Departure Patient Disposition: Home Clinical Impression: Open fracture of tuft of distal phalanx of finger Instructions: DI for Finger Fracture Activity Restrictions/Additional Instructions: Your x-rays show that you have a fracture at the tip of your middle finger. This should heal with conservative treatment. Keep the fernie tape bandage in place for comfort. You had some flexion of your middle finger, but it did seem somewhat decreased on my exam today, likely due to swelling. I highly recommend following up with the primary care doctor as well as an orthopedic doctor if you continue to experience decreased range of motion, as this could indicate a tendon disruption. Prescriptions: New amoxicillin-pot clavulanate 875-125 mg tablet 1 tab PO Q12H Qty: 20 0RF hydrocodone-acetaminophen 5-325 mg tablet 1 tab PO Q6H PRN (Reason: pain) Qty: 10 0RF No Action HYDROCODONE/ACETAMINOPHEN (Vicodin 5-500 Tablet) 1 tab PO PRN Qty: 0 KETOROLAC TROMETHAMINE (#TORADOL) 10 mg PO PRN Qty: 0 ciprofloxacin HCl [Cipro] 500 mg tablet 500 mg PO BID Qty: 20 0RF ciprofloxacin HCl [Cipro] 500 mg tablet 500 mg PO BID Qty: 20 0RF ketorolac 10 mg tablet 10 mg PO TID PRN (Reason: pain) Qty: 15 0RF cyclobenzaprine 10 mg tablet 10 mg PO TID PRN (Reason: muscle spasm) Qty: 20 0RF ciprofloxacin HCl 500 mg tablet 500 mg PO BID Qty: 20 0RF metronidazole 500 mg tablet 500 mg PO TID Qty: 30 0RF hydrocodone-acetaminophen 5-325 mg tablet 1 tab PO Q4-6H PRN (Reason: pain) Qty: 10 0RF ondansetron 4 mg tablet,disintegrating 4 mg PO TID-QID PRN (Reason: nausea and vomiting) Qty: 10 0RF ciprofloxacin HCl [Cipro] 500 mg tablet 500 mg PO Q12H Qty: 20 0RF metronidazole 500 mg tablet 500 mg PO Q8H Qty: 30 0RF Referrals: Cholo Nuñez MD [Physician] - Miscellaneous,MD Rl [Primary Care Provider] - Stand Alone Forms: Patient Portal/API, Work Release Note
[2023-11-06] MEDS: HYDROCODONE/ACET 5/325 PREPACK 1 BOTTLE MISC (20:47)
== END 2023-11-06 20:52 | disposition home or self-care (01) ==
PROVIDERS: Emergency Provider Emergency Medicine
DX: S62.633B Displaced fracture of distal phalanx of left middle finger, initial encounter for open fracture (principal); W45.8XXA Other foreign body or object entering through skin, initial encounter
CPT/HCPCS: 73130; 99283